=== PATIENT | female | born 2000 | race Caucasian/White ===

== ENCOUNTER 2020-02-27 23:56 | Inpatient (IN) ==
[2020-02-28] MEDS ORDERED: Lidocaine 1% 20 ML MDV INFILT PRN (00:09)
[2020-02-28] MEDS ORDERED: Famotidine 20 MG/2 ML VIAL IVP PRN (00:09)
[2020-02-28] MEDS ORDERED: Ondansetron 4 MG/2 ML VIAL IVP PRN (00:09)
[2020-02-28] MEDS ORDERED: Naloxone 0.4 MG/ML INJ IVP PRN (00:09)
[2020-02-28] MEDS ORDERED: Metoclopramide 10 MG/2 ML VIAL IVP PRN (00:09)
[2020-02-28] MEDS ORDERED: miSOPROStoL 25 MCG TABLET PO PRN (00:11)
[2020-02-28 01:02] LABS: Basophils % 0.2 %; Eosinophils # 0.1 K/mcL (0.0-0.6); Eosinophils % 0.4 %; Hematocrit 37.8 % (35.3-44.9); Hemoglobin 12.3 g/dL (11.5-15.4); Immature Granulocytes % 0.5 % (0-4); Lymphocytes # 2.2 K/mcL (0.6-4.6); Lymphocytes % 18.3 %; Mean Corpuscular HGB Conc 32.5 g/dL (31.6-35.5); Mean Corpuscular Hemoglobin 29.9 pg (28.0-33.3); Mean Platelet Volume 11.6 fL (9.4-12.4); Monocytes # 0.8 K/mcL (0.0-1.3); Monocytes % 6.7 %; Neutrophils # 8.9 K/mcL (1.6-8.9); Platelet Count 216 K/mcL (140-400); Red Blood Count 4.11 M/mcL (3.82-4.97); Red Cell Distribution Width 14.1 % (11.5-14.5); Segmented Neutrophils % 73.9 %
[2020-02-28 01:14] LABS: Amphetamine Screen,Urine Negative ng/mL (Cutoff=1000); Barbiturate Screen,Urine Negative ng/mL (Cutoff=200); Benzodiazepines Screen,Urine Negative ng/mL (Cutoff=200); Cannabinoid Screen,Urine Negative ng/mL (Cutoff = 50); Cocaine Screen,Urine Negative ng/mL (Cutoff= 300); Opiate Screen,Urine Negative ng/mL (Cutoff=300); Phencyclidine Screen,Urine Negative ng/mL (Cutoff=25)
[2020-02-28] MEDS: *HR* FentaNYL (PF) 100 MCG/2 ML VIAL IVP PRN ×2 (03:59→08:02)
[2020-02-28] MEDS ORDERED: EPHEDrine 50 MG/ML VIAL IVP PRN (06:33)
[2020-02-28] MEDS ORDERED: Epidural Premix (fent/bupiv) 110 ML EP SCH (06:45)
[2020-02-28] MEDS: Ringers Solution, Lactated 1,000 ML IVC SCH ×3 (09:25→18:53)
[2020-02-28] MEDS ORDERED: Oxytocin 20 units/ LR 1000 mL 20 UNIT/1,000 ML BAG IVC SCH ×2 (10:15→22:06)
[2020-02-28] MEDS ORDERED: *HR* FentaNYL (PF) 100 MCG/2 ML VIAL EP ONE (14:18)
[2020-02-28] MEDS ORDERED: Bupivacaine-MPF 0.25% 10 ML VIAL EP ONE (14:18)
[2020-02-28] MEDS ORDERED: *HR* FentaNYL (PF) 100 MCG/2 ML VIAL ONE (14:24)
[2020-02-28] MEDS ORDERED: Bupivacaine-MPF 0.25% 10 ML VIAL ONE (14:24)
[2020-02-28] MEDS ORDERED: Measles/Mumps/Rubella Vacc 0.5 ML VIAL SQ PRN (22:06)
[2020-02-28] MEDS ORDERED: Acetaminophen 325 MG TABLET PO PRN (22:06)
[2020-02-28] MEDS ORDERED: Oxytocin 20 units/ LR 1000 mL 20 UNIT/1,000 ML BAG IVC ONE (22:06)
[2020-02-28] MEDS ORDERED: Rho Immune Globulin 1,500 UNIT SYRINGE IM PRN (22:06)
[2020-02-28] MEDS ORDERED: Benzocaine/Menthol 56 GM AEROSOL SPRAY TP PRN (22:06)
[2020-02-28] MEDS ORDERED: Lanolin 7 G OINT...G. TP PRN (22:06)
[2020-02-28] MEDS: Ibuprofen 600 MG TABLET PO PRN (23:32)
[2020-02-29 05:21] LABS: Basophils % 0.1 %; Eosinophils % 0.2 %; Hematocrit 33.5 % (35.3-44.9); Hemoglobin 10.9 g/dL (11.5-15.4); Immature Granulocytes % 0.4 % (0-4); Lymphocytes # 1.8 K/mcL (0.6-4.6); Lymphocytes % 12.1 %; Mean Corpuscular HGB Conc 32.5 g/dL (31.6-35.5); Mean Corpuscular Hemoglobin 29.9 pg (28.0-33.3); Mean Corpuscular Volume 91.8 fL (83.0-100.0); Mean Platelet Volume 11.7 fL (9.4-12.4); Monocytes % 6.8 %; Neutrophils # 11.8 K/mcL (1.6-8.9); Platelet Count 185 K/mcL (140-400); Red Blood Count 3.65 M/mcL (3.82-4.97); Red Cell Distribution Width 13.8 % (11.5-14.5); Segmented Neutrophils % 80.4 %; White Blood Count 14.7 K/mcL (4.3-11.1)
[2020-02-29] MEDS: Ibuprofen 600 MG TABLET PO PRN ×2 (09:04→20:38)
[2020-02-29] MEDS: Prenatal Vit/FA 1 EACH TABLET PO SCH (09:05)
[2020-03-01] MEDS ORDERED: Clindamycin 900 MG/50 ML 900 MG/50 ML IV.SOLN IVPB ONE (09:40)
[2020-03-01] MEDS ORDERED: Ampicillin 2 GM in 0.9 % Sodium Chloride Mini Bag 100 ML IVPB ONE (09:40)
[2020-03-01] MEDS ORDERED: Fluconazole 100 MG TABLET PO ONE (09:41)
[2020-03-01] MEDS: Prenatal Vit/FA 1 EACH TABLET PO SCH (09:56)
[2020-03-01 11:40] LABS: BUN/Creatinine Ratio 12 (6-26); Blood Urea Nitrogen 6 mg/dL (6-20); Calcium 8.9 mg/dL (8.6-10.3); Carbon Dioxide 22 mEq/L (23-29); Chloride 107 mEq/L (98-107); Glucose 85 mg/dL (70-105); Osmolality,Calculated 283 (280-300); Potassium 3.7 mEq/L (3.5-5.1); Sodium 138 mEq/L (136-145); eGFR For African Americans > 60 (> 60); eGFR For Non-African Americans > 60 (> 60)
[2020-03-01] MEDS ORDERED: Gentamicin 80 MG in 0.9 % Sodium Chloride 100 ML IVPB SCH (12:00)
[2020-03-01] MEDS: Ibuprofen 600 MG TABLET PO PRN (20:37)
[2020-03-02 07:44] VITALS: BP 123/82
[2020-03-02] MEDS: Prenatal Vit/FA 1 EACH TABLET PO SCH (08:10)
== END 2020-03-02 13:27 | disposition home or self-care (01) | DRG 768 ==
LOC: 1NENULAB 23:56 → 1NENUOBS 02-28 23:26
PROVIDERS: ADMIT Student in an Organized Health Care Education/Training Program; ATTEND Student in an Organized Health Care Education/Training Program